=== PATIENT | female | born 1940 | race Caucasian/White ===

== ENCOUNTER 2016-07-04 09:21 | Day surgery (SDC) | payer MEDICARE, OTHER ==
--- NOTE | ~2016-07-04 | EGD ---
EGD REPORT [facility] [address] [address] NAME: DESTINY COLBY : [birth year] STATUS : REG [facility]#: [id number] AGE: 75 ADM/REG DATE : 07/04/16 MR#: [id number] REPORT SERV DATE: 07/04/16 DICTATED BY: SALVATORE MIR DATE: 07/04/16 REPORT STATUS : Draft TRANSCRIBED BY: [facility] DATE: 07/04/16 Pulmonology Patient Name: Destiny Colby Procedure Date: 07/04/2016 10:53 AM Date of : 1940 Attending MD: NAN MIR MD Procedure Date No Time: 07/04/2016 Procedure: EBUS Indications: Left mainstem sessile lesion Providers: NAN MIR MD Referring MD: CHRISTIE TYLER Medicines: Lidocaine 2% 20 mL Complications: No immediate complications Procedure: Pre-Anesthesia Assessment: - A History and Physical has been performed. Patient meds and allergies have been reviewed. The risks and benefits of the procedure and the sedation options and risks were discussed with the patient. All questions were answered and informed consent was obtained. Patient identification and proposed procedure were verified prior to the procedure by the physician and the nurse in the procedure room. Mental Status Examination: normal. Airway Examination: normal oropharyngeal airway. Respiratory Examination: clear to auscultation. CV Examination: normal and RRR, no murmurs, no S3 or S4. ASA Grade Assessment: III - A patient with severe systemic disease. After reviewing the risks and benefits, the patient was deemed in satisfactory condition to undergo the procedure. The anesthesia plan was to use general anesthesia. Immediately prior to administration of medications, the patient was re-assessed for adequacy to receive sedatives. The heart rate, respiratory rate, oxygen saturations, blood pressure, adequacy of pulmonary ventilation, and response to care were monitored throughout the procedure. The physical status of the patient was re-assessed after the procedure. After obtaining informed consent, the BF [id number] was introduced through the mouth, via the endotracheal tube (the patient was intubated for the procedure) and advanced to the tracheobronchial tree. the Bronchoscope was introduced through the mouth, via the endotracheal tube (the patient was intubated for the procedure) and advanced to the tracheobronchial tree. The procedure was accomplished without difficulty. The patient tolerated the procedure well. EGD REPORT [address] [place]. [address] NAME: DESTINY COLBY : [birth year] STATUS : REG [facility]#: [id number] AGE: 75 ADM/REG DATE : 07/04/16 MR#: [id number] REPORT SERV DATE: 07/04/16 DICTATED BY: SALVATORE MIR DATE: 07/04/16 REPORT STATUS : Draft TRANSCRIBED BY: [employer] DATE: 07/04/16 Findings: The endotracheal tube is in good position. The visualized portion of the trachea is of normal caliber. The geovanny is sharp. The tracheobronchial tree was examined to at least the first subsegmental level. There was an area of nodular prominence along the LMS anterior cartilaginous ring. Endobronchial biopsies were performed in the left mainstem bronchus nodular lesion of the lung using a forceps and sent for histopathology examination. Two samples were obtained. Brushings were obtained in the left mainstem bronchus of the lung and sent for routine cytology. One sample was obtained. LEONARD endobronchial brush biopsies were performed for the Percepta Trial Impression: There was no sessile polyp present in the LMS. 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 Patient enrolled in Percepta clinical trial and Oncocyte clinical trial Recommendation: - Await test results. - Follow up in clinic in 2-4 weeks. - Patient will require a one year CT scan for the 4 mm lung nodule. - Patient also qualifies for CT Chest screening thereafter. - Smoking cessation Attending Participation: I personally performed the entire procedure. NAN MIR MD 07/04/2016 12:47 PM This report has been signed electronically. Number of Addenda: 0 Note Initiated On: 07/04/2016 10:53 AM [address] [address]
--- NOTE | ~2016-07-04 | CN ---
Consultation Report [facility] [address] [place]. [address] NAME: DESTINY COLBY : [birth year] STATUS : [facility]#: [id number] AGE: 75 ADM/REG DATE : 07/04/16 MR#: [id number] REPORT SERV DATE: 07/15/16 DICTATED BY: JUSTICE MIR DATE: 07/15/16 REPORT STATUS : Draft TRANSCRIBED BY: [employer] DATE: 07/15/16 CONSULTATION DATE OF CONSULTATION: 07/04/[address] Della David: Thank you for requesting my opinion regarding evaluation and management of Ms. Destiny Colby' abnormal CT scan of the chest. Ms. Colby is a pleasant 75-year-old female with a significant past medical history of tobacco abuse, chronic kidney disease stage III, and hyperlipidemia, who presents to [facility] for formal evaluation of an abnormal CT scan of the chest. The patient was undergoing a workup for chronic shortness of breath, and CT scan performed on 06/27/2016 did not demonstrate any acute cardiopulmonary disease, mild to moderate bilateral upper lobe central lobular predominant emphysema, a 4 mm left upper lobe incidental noncalcified pulmonary nodule, and a 4 mm sessile nodule located in the proximal left mainstem extending into the bronchial lumen. A recommendation from Dr. Raymond Sevilla was to consider bronchoscopy for direct visualization of the abnormality. Ms. Colby states that she has chronic mild shortness of breath, well localized to the chest, nonradiating with no significant alleviating or exacerbating factors. She denies any chronic cough, chest pain, palpitations, nausea, vomiting, diarrhea, or constipation. REVIEW OF SYSTEMS: A detailed 14-point review of systems was completed. Pertinent positives and negatives are listed above. PAST MEDICAL HISTORY: 1. Chronic kidney disease, stage III. 2. Tobacco and snuff user. 3. Atherosclerosis of the renal artery, status post right renal stent in 06/2012 with repeat stenting x2 on 03/2013 and 06/2014, the patient had an occluded right stent without left ARNULFO and also a right iliac arterial stent. 4. Anemia. 5. Proteinuria. 6. Hypercalcemia. PAST SURGICAL HISTORY: 1. Bilateral cataract extraction. 2. Right renal artery intervention listed above. 3. Right external iliac stent. 4. Breast biopsy. 5. Partial hysterectomy. Consultation Report [facility] [address] [place]. [address] NAME: DESTINY COLBY : [birth year] STATUS : [facility] PAT#: [id number] AGE: 75 ADM/REG DATE : 07/04/16 MR#: [id number] REPORT SERV DATE: 07/15/16 DICTATED BY: JUSTICE MIR DATE: 07/15/16 REPORT STATUS : Draft TRANSCRIBED BY: LATOYA DATE: 07/15/16 ALLERGIES: MORPHINE. HOME MEDICATIONS: Reviewed and located in the paper chart. SOCIAL HISTORY: The patient is a current everyday smoker. She smokes one pack per day for a total of [id number]. She denies any significant alcohol or illicit drug abuse. FAMILY HISTORY: Heart failure in both her sister and brother. PHYSICAL EXAMINATION: VITAL SIGNS: Reviewed and located in the paper chart. GENERAL: No acute distress. Able to communicate in full paragraphs at a time. HEENT: Normocephalic, atraumatic. Pupils are equal, round, and reactive to accommodation. Posterior oropharynx is clear. NECK: No JVD. No LAD. Trachea midline. CARDIOVASCULAR: Regular rate and rhythm. S1, S2 present. LUNGS: Clear to auscultation bilaterally. No end-expiratory wheezes noted. ABDOMEN: Nontender, nondistended. Soft. Positive bowel sounds. EXTREMITIES: No clubbing, cyanosis, or edema. SKIN: No new rashes, lesions, or ulcers. PSYCHIATRIC: Alert and oriented x3. Appropriate mood and affect. Appropriate insight and judgment. NEUROLOGIC: 5/5 strength in upper and lower extremities. Cranial nerves 2 through 12 intact. Gait not tested. DTRs not performed. DIAGNOSTIC STUDIES: 1. CT scan of the chest on 06/27/2016 was compared to a prior chest x-ray on 12/24/2015, there was no evidence of acute cardiopulmonary disease, mild to moderate bilateral upper lobe predominant emphysema. 2. 4 mm left upper lobe noncalcified lung nodule. Recommend repeat followup CT scan in 12 months. 3. 4 mm sessile solid nodule in the proximal left mainstem extending into the bronchial lumen, consider bronchoscopy for direct visualization. The CT scan has been personally reviewed by me and I agree with the above interpretation. ASSESSMENT AND PLAN: Ms. Destiny Colby is an extremely pleasant 75-year-old female with a significant past medical history of heavy tobacco abuse, who presents with an abnormal CT scan of the chest. She was undergoing a workup for shortness of breath, and CT scan confirmed the presence of upper lobe predominant central lobular emphysema. However, there was a 4 mm sessile nodule within the proximal left mainstem bronchus extending into the bronchial lumen. Consideration of bronchoscopy was recommended. The patient also had a 4 mm left upper lobe noncalcified lung nodule. Regarding the 4 mm lung nodule, according to Fleischner guidelines, she will require a repeat CT scan in 12 months. Consultation Report [facility] [address] [facility] [place]. [address] NAME: DESTINY COLBY : 44 STATUS : [facility]#: [id number] AGE: 75 ADM/REG DATE : 07/04/16 MR#: [id number] REPORT SERV DATE: 07/15/16 DICTATED BY: JUSTICE MIR DATE: 07/15/16 REPORT STATUS : Draft TRANSCRIBED BY: LATOYA DATE: 07/15/16 With regard to her 4 mm sessile solid lung nodule noted in the left proximal mainstem, this may represent mucus or an actual endobronchial lesion. Given her smoking history, bronchoscopy has been recommended. The patient is aware that bronchoscopy is associated with potential life-threatening risks, including lung collapse, respiratory failure, and even . RECOMMENDATIONS: A summary of my recommendations are as follows: 1. Proceed with bronchoscopy for a direct visualization of the 4 mm sessile nodule noted on CT scan dated 06/27/2016. 2. The patient will require repeat CT imaging in one year, in 06/2017 regarding the 4 mm lung nodule. 3. The patient will require to follow up with [facility] for formal review of her biopsy results as well as optimizing her pulmonary status. 4. Smoking cessation is recommended. Thank you for allowing me to participate in Ms. Destiny Colby' care. Sincerely, JAYME/LATOYA Justice Mir M.D. / [id number] CC: Ahmet Josue M.D. John Bierly, M.D. David Collins, M.D. Michael Greer, M.D. Nathan Chamberlain, M.D.
[~2016-07-04 09:21] MED LIST: ACET500CAP PO; APRES25; ASAB PO; ATEN50 PO; BYSTOLIC20 MG PO; COZAAR100 MG PO; EFFEX75 PO; EFFEXOR XR150 MG PO; HYZAAR 100/25 T1 TAB PO; L20 PO; LIPITOR20 PO; TRICOR145 PO
[2016-07-04 09:38] LABS: BASOPHILS 0.5 %; BASOPHILS ABSOLUTE 0.04 10/3/uL (0.0-0.16); EOSINOPHILS 1.1 %; EOSINOPHILS ABSOLUTE 0.09 10/3/uL (0.0-0.53); HEMATOCRIT 40.2 % (36.0-48.0); HEMOGLOBIN 13.5 g/dL (12.0-16.0); IMMATURE GRANULOCYTES 0.2 %; IMMATURE GRANULOCYTES ABSOLUTE 0.02 10/3/uL (0.0-0.11); LYMPHOCYTES 21.7 %; LYMPHOCYTES ABSOLUTE 1.76 10/3/uL (0.67-4.30); MEAN CORPUS HGB CONC 33.6 g/dL (32.0-36.0); MEAN CORPUSCULAR HEMOGLOB 28.8 pg (26.0-34.0); MEAN CORPUSCULAR VOLUME 85.9 fL (80-100); MEAN PLATELET VOLUME 10.2 fL (9.2-13.0); MONOCYTES ABSOLUTE 0.57 10/3/uL (0.21-1.20); NEUTROPHILS 69.5 %; NEUTROPHILS ABSOLUTE 5.64 10/3/uL (2.02-8.40); PLATELET COUNT 299 10/3/uL (150-400); RBC DISTRIBUTION WIDTH 13.5 % (12.0-16.0); RED CELL COUNT 4.68 10/6/uL (4.0-5.6); WHITE BLOOD CELLS 8.1 10/3/uL (4.5-10.5)
[2016-07-04 09:41] LABS: MANUAL DIFF NO %
[2016-07-04 10:00] LABS: INTERNATIONAL NORMAL RATI 1.1 UNITS (-); PARTIAL THROMBO TIME 25.1 SEC (22.5-37.2); PROTIME (NOT ORD) 13.6 SEC (12.0-14.5)
[2016-07-04 10:11] LABS: BUN (BLOOD UREA NITROGEN) 20 MG/DL (6-23); CALCIUM, SERUM 9.8 MG/DL (8.5-10.4); CHLORIDE, SERUM 110 MMOL/L (96-112); CO2 (CARBON DIOXIDE) 27 MMOL/L (24-34); GFR AFRICAN AMERICAN 47 ML/MIN (>=60); GFR NON AFRICAN AMERICAN 41 ML/MIN (>=60); GLUCOSE, SERUM 91 MG/DL (60-99); SODIUM, SERUM 143 MMOL/L (135-148)
== END 2016-07-04 23:59 | disposition home or self-care (01) ==
LOC: DMU 09:21
PROVIDERS: Anesthesiology; Internal Medicine
PROC: 0BB78ZX Excision of Left Main Bronchus, Via Natural or Artificial Opening Endoscopic, Diagnostic (ICD-10-PCS; principal; 2016-07-04 11:00)
DX: J98.09 Other diseases of bronchus, not elsewhere classified (principal); I10 Essential (primary) hypertension; F17.210 Nicotine dependence, cigarettes, uncomplicated; F41.9 Anxiety disorder, unspecified; Z88.5 Allergy status to narcotic agent; Z79.82 Long term (current) use of aspirin; Z79.899 Other long term (current) drug therapy; Z90.89 Acquired absence of other organs; M81.0 Age-related osteoporosis without current pathological fracture; E78.00 Pure hypercholesterolemia, unspecified; Z86.010 Personal history of colon polyps; Z90.711 Acquired absence of uterus with remaining cervical stump; Z98.890 Other specified postprocedural states
CPT/HCPCS: 71010; 80048; 85025; 85610; 85730; 88112; 88305; 88333; 93005; A9270-GY; J0360; J1170; J2405; J2710; J3010